=== PATIENT | female | born 1995 | race Caucasian/White ===

== ENCOUNTER 2025-06-08 13:19 | Emergency (ER) | payer OTHER, SELFPAY ==
[2025-06-08 13:33] VITALS: BP 127/83; PULSE 96; RESP 18; TEMP 36.9; O2SAT 96; BMI 22.5
--- NOTE | 2025-06-08 15:21 | ED_ITS ---
HPI - General Adult General Date Seen: 06/08/25 Chief complaint: Dizziness/Vertigo Stated complaint: Dizziness; tri nurse states sym. of seizure Time Seen by Provider: 06/08/25 15:21 History of Present Illness HPI narrative: 30-year-old female who is generally healthy presenting to the ER today on the advice of the [facility] clinic or triage nurse. She does not have any long-term medical conditions or long-term medications. She is here for symptoms including feeling a little bit unwell, tingly for the past few days, preceded by an episode of shakiness that happened 5 nights ago, last Sunday. She was on vacation visiting a friend in [place] and had a good day last Sunday and had dinner. After dinner last Sunday she had an episode where she was very shaky and tremulous involving both of her hands both her legs. Her friend, who was a nurse, had her lay down and then gave her a better. Apparently her friend suspect she might be having a panic attack. The patient had no alteration in sensorium and remembers the event in detail. There was no postictal phase. She says that after the Benadryl things got better for about 10 or 15 minutes. She slept well overnight Sunday. On she felt a little bit drowsy and had a Benadryl hangover. . On Sunday she was feeling less drowsy again but ever since then has had spells off and on where she gets a little bit tingly affect knee both of her hands and both of her feet and sometimes on her cheeks and around her mouth. No further shaking events. No other symptoms since then. No vomiting or diarrhea. No fever or chills. No cough or shortness of breath. No chest pain. No abdominal pain. No back pain. Urination has been normal. Menstrual cycle is been normal and she just started her period yesterday. She does not think she is . She is not having any significant pelvic cramping with her period. No tobacco use. No drugs or alcohol. She had never even taken Benadryl prior to her friend giving her A dose last Sunday. Related Data Previous Rx's ?Medication ?Instructions ?Recorded hydroxyzine HCl 10 mg tablet 10 mg PO TID PRN itching #7 tabs 12/08/25 Allergies Allergy/AdvReac Type Severity Reaction Status Date / Time No Known Drug Allergies Allergy Verified 06/08/25 13:39 [facility] Social History Smoking Status: Never smoker How often do you have a drink containing alcohol: never AUDIT-C Alcohol total score: 0 Non-prescribed substance use: denies use Exam Narrative: Exam Narrative: Constitutional: Appears well-developed and well-nourished. Alert. Conversant. Non toxic. HENT: Head: Atraumatic. Nose: Nose normal. Mouth/Throat: Oral mucosa is clear and moist. no trismus. Pharynx normal. Tonsils symmetric. No tonsillar enlargement, erythema, or exudate. Eyes: Conjunctivae normal. EOM normal. Pupils equal, round, and reactive to light. No scleral icterus. Neck: Normal range of motion. Neck supple. No tracheal deviation present. no thyromegaly. Cardiovascular: Normal rate, regular rhythm. No gallop. No friction rub. No murmur heard. Symmetric radial artery pulses Pulmonary/Chest: Effort normal. No stridor. No respiratory distress. No wheezes. No rales. No rhonchi . No tenderness. Abdominal: Soft. Bowel sounds normal. No distension. No mass. No tenderness. No rebound. No guarding. Musculoskeletal: RUE: Normal range of motion. No tenderness. No deformity LUE: Normal range of motion. No tenderness. No deformity RLE: Normal range of motion. No edema. No tenderness. No deformity LLE: Normal range of motion. No edema. No tenderness. No deformity Lymph: No cervical adenopathy. Neurological: Alert and oriented to person, place, and time. Normal strength. CN II-VII intact. No sensory deficit. GCS eye subscore is 4. GCS verbal subscore is 5. GCS motor subscore is 6. Normal coordination Skin: Skin is warm and dry. No rash noted. No pallor. Normal capillary refill. Psychiatric: Normal mood. Normal affect. Polite. Conversant. Const: Vital Signs, click to edit/add: Vital Signs - 24 hr 06/08/25 13:33 06/08/25 17:26 Temperature 98.5 F Pulse Rate [Pulse Oximeter] 96 67 Respiratory Rate 18 16 Blood Pressure [Ri ght Upper Arm] 127/83 103/72 Pulse Oximetry 96 Oxygen Delivery Me thod Room Air Room Air Course Vital Signs Vital signs: Initial Vital Signs Temperature 98.5 F 06/08/25 13:33 Temperature Source Temporal Artery Scan 06/08/25 13:33 Pulse Rate 96 06/08/25 13:33 Pulse Rhythm Regular 06/08/25 13:33 Respiratory Rate 18 06/08/25 13:33 Blood Pressure 127/83 06/08/25 13:33 Blood Pressure Mean 97 06/08/25 13:33 Blood Pressure Position Sitting 06/08/25 13:33 Pulse Oximetry 96 06/08/25 13:33 Oxygen Delivery Method Room Air 06/08/25 13:33 Vital Signs Temperature 98.5 F 06/08/25 13:33 Pulse Rate 96 06/08/25 13:33 Respiratory Rate 18 06/08/25 13:33 Blood Pressure 127/83 06/08/25 13:33 Pulse Oximetry 96 06/08/25 13:33 Oxygen Delivery Method Room Air 06/08/25 13:33 Temperature 98.5 F 06/08/25 13:33 Pulse Rate 67 06/08/25 17:26 Respiratory Rate 16 06/08/25 17:26 Blood Pressure 103/72 06/08/25 17:26 Pulse Oximetry 96 06/08/25 13:33 Oxygen Delivery Method Room Air 06/08/25 17:26 Medical Decision Making MDM Narrative Medical decision making narrative: This patient presents for evaluation of and dizziness, feeling a little bit tingly in Her face,, fingers and toes. after discussing with the [facility] triage nurse that she was told to come to the ER because they were worried she might have been having seizures. She did have a shaking event that happened last Sunday night and affected both of her arms and both of her legs, but did not impair consciousness. Based on the description I do not think this is a generalized tonic-clonic seizure. If this were seizure events, she likely will would have other neurologic symptoms including, impaired consciousness. . A broad differential diagnosis was considered including thyroid disease, acute electrolyte abnormality, drugs/medications, caffeine intake or other stimulants, medication side effect, anemia, heart disease, PE ( Low risk by PERC), among others. The workup and exam here in ED shows not specific cause of the patient's palpitations, and no risks factors to warrant admission. Clinical judgement suggests that supportive outpatient management is indicated. at this point reasonable clinical confidence suggest that she is stable for outpatient follow up with her PCP the [facility]. I will give her a short prescription for low-dose hydroxyzine that she can use p.r.n. if she is having tingling or woozy spells on the supposition that these may be panic attacks. She agrees to try that empirically. She will also follow-up with her PCP. At the time of this dictation TSH is not back. I have discussed this outstanding blood test with my partner, Dr. Duvall and she will follow-up with the patient and change disposition if the TSH shows an abnormality. Lab Data Labs: Lab Results 06/08/25 Range/Units 16:05 WBC 11.72 H (4.50-11.00) K/uL RBC 5.22 H (4.00-5.20) m/uL Hgb 14.8 (12.0-16.0) gm/dL Hct 44.1 (33.0-51.0) % MCV 85 (80-100) fL MCH 28 (26-34) pg MCHC 34 (32-36) gm/dL RDW Coeff of Siria 13.0 (11.5-15.5) % Plt Count 379 (140-440) K/uL Neut % (Auto) 82.7 H (42.0-72.0) % Lymph % (Auto) 12.5 L (20-44) % [place] % (Auto) 4.4 (0.0-11.0) % Eos % (Auto) 0.0 (0.0-7.0) % Baso % (Auto) 0.3 (0.0-3.0) % Neut # (Auto) 9.70 H (1.7-7.0) K/uL Lymph # (Auto) 1.50 (0.90-2.90) K/uL [place] # (Auto) 0.50 (0.00-0.90) K/UL Eos # (Auto) 0.00 (0.00-0.50) K/uL Baso # (Auto) 0.00 (0.00-0.30) K/uL Abs Immat Gran (auto) 0.00 (0.00-0.30) K/uL Imm/Tot Granulo (auto) 0.1 % Sodium 137 (135-149) mmol/L Potassium 3.5 L (3.6-5.1) mmol/L Chloride 102 (96-114) mmol/L Carbon Dioxide 22 (20-32) mmol/L Anion Gap 13 (7-15) mEq/L BUN 8 (5-24) mg/dL Creatinine 0.7 (0.5-1.5) mg/dL Estimated Creat Clear 105.74 Estimated GFR 119 ml/min Glucose 125 H (60-115) mg/dL Calcium 9.5 (8.4-10.6) mg/dL Magnesium 1.9 (1.5-2.6) mg/dL HCG, Qual Negative (Negative) Discharge Plan Discharge Clinical Impression: Paresthesia, Anxiety Patient Disposition: Home, Self-Care Condition: Stable Instructions: Paresthesia (ED), Anxiety (ED) Additional Instructions: as we discussed, so far your workup looks reassuring. No signs of anemia or low hemoglobin, electrolyte disturbance, or other clear problem because your numbness and feeling irregular. At this point I suspect, But we cannot yet definitively prove, that you may be having anxiety or panic attacks. Please follow-up with your regular doctor the [facility] within a couple of days to recheck. In the meantime it is okay to use the prescription medication, hydroxyzine, if needed. Prescriptions: New hydroxyzine HCl 10 mg tablet 10 mg PO TID PRN (Reason: itching) Qty: 7 0RF Follow Up/Referrals: Provider,Not a Local [Primary Care Provider, Family Practice] Stand Alone Forms: [employer] Info Instructions
[2025-06-08 16:30] LABS: Chloride* 102 mmol/L (96-114); Sodium* 137 mmol/L (135-149)
[2025-06-08 16:31] LABS: Potassium* 3.5 mmol/L (3.6-5.1)
[2025-06-08 16:34] LABS: Anion Gap 13 mEq/L (7-15); Blood Urea Nitrogen* 8 mg/dL (5-24); Calcium* 9.5 mg/dL (8.4-10.6); Carbon Dioxide* 22 mmol/L (20-32); Creatinine* 0.7 mg/dL (0.5-1.5); Est. Creatinine Clearance* 105.74; Estimated Glomerular Filt Rate 119 ml/min; Glucose* 125 mg/dL (60-115)
[2025-06-08 16:51] LABS: HCG Qualitative Serum* Negative (Negative)
[2025-06-08 17:03] LABS: Hematocrit* 44.1 % (33.0-51.0); Hemoglobin* 14.8 gm/dL (12.0-16.0); Immature Granulocytes Pct Auto 0.1 %; Mean Corpuscular HGB Conc 34 gm/dL (32-36); Mean Corpuscular Hemoglobin 28 pg (26-34); Mean Corpuscular Volume 85 fL (80-100); RDW Coefficient of Variation % 13.0 % (11.5-15.5); Red Blood Count* 5.22 m/uL (4.00-5.20); White Blood Count* 11.72 K/uL (4.50-11.00)
[2025-06-08 17:04] LABS: Immature Granulocytes Abs Auto 0.00 K/uL (0.00-0.30); Lymphocytes Absolute Auto 1.50 K/uL (0.90-2.90); Slide Review Reflex No
[2025-06-08 17:26] VITALS: BP 103/72; PULSE 67; RESP 16
[2025-06-08 18:24] LABS: TSH With Reflex to FT4* 1.980 uIU/mL (0.270-4.200)
== END 2025-06-08 18:37 | disposition home or self-care (01) ==
PROVIDERS: Emergency Provider Emergency Medicine
DX: R20.2 Paresthesia of skin (principal); F41.9 Anxiety disorder, unspecified
CPT/HCPCS: 36415; 80048; 83735; 84443; 84703; 85025; 99283